=== PATIENT | female | born 1970 | race Caucasian/White ===

== ENCOUNTER 2020-02-04 15:29 | Outpatient (CLI) | payer OTHER, SELFPAY ==
--- NOTE | ~2020-02-04 | MM_ITS ---
EXAMINATION: MM screening [facility] BI w martha HISTORY: Screening mammogram TECHNIQUE: Rotated lateral cc view of left breast. ........... Jayce 1 shows there is an aneurys m or A more years ago in [place] the nipple there is a very subtle Craniocaudal and mediolateral oblique 3-D tomosynthesis images were obtained and synthetic 2-D images were generated. CAD analysis was subm itted and interpreted. COMPARISON: 04/27/2018, 10/20/2016, 10/08/2015 bilateral digital screening mammogram examinations BREAST PARENCHYMAL COMPOSITION: There are scattered areas of fibroglandular density. FINDINGS: Postoperative changes noted. There is no evidence of suspicious mass, calcification, or arc hitectural distortion to suggest malignancy in either breast. There has been no suspicious interval c hange. IMPRESSION: 1. No mammographic evidence of malignancy. 2. Recommend routine screening mammography in one year. BI-RADS Category 2: Benign finding(s). Reviewed, dictated and finalized at location A.
== END 2020-02-04 15:30 | disposition home or self-care (01) ==
PROVIDERS: PCP Family Medicine; Visit Provider Internal Medicine
DX: Z12.31 Encounter for screening mammogram for malignant neoplasm of breast (principal)
CPT/HCPCS: 77063; 77067

== ENCOUNTER 2022-09-20 15:12 | Outpatient (CLI) | payer OTHER, SELFPAY ==
--- NOTE | ~2022-09-20 | MM_ITS ---
EXAMINATION: MM screening [facility] BI w martha HISTORY: Screening mammogram, history of left breast cancer TECHNIQUE: Craniocaudal and mediolateral oblique 3-D tomosynthesis images were obtained and synthetic 2-D images were generated. CAD analysis was submitted and interpreted. COMPARISON: 02/04/2020, 04/27/2018, 10/20/2016 BREAST PARENCHYMAL COMPOSITION: There are scattered areas of fibroglandular density. FINDINGS: RIGHT BREAST: No suspicious mass, calcification, or architectural distortion are identified to sugges t malignancy. There has been no suspicious interval change. LEFT BREAST: An asymmetry is present in the middle third of the breast in line with the nipple axis V .5 cm from the nipple on the craniocaudal view. IMPRESSION: 1. Left breast asymmetry on the craniocaudal view. 2. Additional mammographic views and possible breast ultrasound are recommended. BI-RADS Category 0: Incomplete: Needs additional imaging evaluation. Reviewed, dictated and finalized at location A. IMPRESSION: 1. Left breast asymmetry on the craniocaudal view. 2. Additional mammographic views and possible breast ultrasound are recommended . BI-RADS Category 0: Incomplete: Needs additional imaging evaluation.
== END 2022-09-20 15:13 | disposition home or self-care (01) ==
LOC: ANHIMG 15:16
PROVIDERS: PCP Internal Medicine; Visit Provider Internal Medicine
DX: Z12.31 Encounter for screening mammogram for malignant neoplasm of breast (principal); R92.8 Other abnormal and inconclusive findings on diagnostic imaging of breast
CPT/HCPCS: 77063; 77067

== ENCOUNTER 2022-10-15 13:03 | Outpatient (CLI) | payer OTHER, SELFPAY ==
--- NOTE | ~2022-10-15 | MM_ITS ---
EXAMINATION: MM diagnostic kandy LT w martha HISTORY: Follow-up left breast asymmetry TECHNIQUE: Additional 3-D tomosynthesis images of the left breast were performed and synthetic 2-D im ages were generated. CAD analysis was submitted and interpreted. COMPARISON: Comparison to multiple prior studies sequentially, with oldest reviewed study dated 10/28. BREAST PARENCHYMAL COMPOSITION: Breast composition is almost entirely fatty FINDINGS: Focal left breast asymmetry compresses with spot views. No suspicious masses, calcification s or architectural distortion in the left breast to suggest malignancy. IMPRESSION: 1. No mammographic evidence for malignancy in the left breast. 2. Routine yearly screening mammogram and regular clinical breast examination are recommended. BI-RADS Category 1: Negative Reviewed, dictated and finalized at location A. 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 No mammographic evidence for malignancy in the left breast. 2. Routine yearly screening mammogram and regular clinical breast examination a re recommended. BI-RADS Category 1: Negative
== END 2022-10-15 13:04 | disposition home or self-care (01) ==
PROVIDERS: PCP Internal Medicine; Visit Provider Internal Medicine
DX: R92.2 Inconclusive mammogram (principal)
CPT/HCPCS: 77061; 77065; G0279

== ENCOUNTER 2023-10-11 15:18 | Outpatient (CLI) | payer OTHER, SELFPAY ==
--- NOTE | ~2023-10-11 | MM_ITS ---
EXAMINATION: MM screening [facility] BI w martha HISTORY: Screening mammogram TECHNIQUE: Craniocaudal and mediolateral oblique 3-D tomosynthesis images were obtained and synthetic 2-D images were generated. CAD analysis was submitted and interpreted. COMPARISON: 10/15/2022, 09/20/2022, 02/04/2020, 04/27/2018 BREAST PARENCHYMAL COMPOSITION: There are scattered areas of fibroglandular density. FINDINGS: No suspicious mass, calcification, or architectural distortion are identified in either ean ast to suggest malignancy. There has been no suspicious interval change. IMPRESSION: 1. No mammographic evidence of malignancy. 2. Recommend routine screening mammography in one year. BI-RADS Category 1: Negative Reviewed, dictated and finalized at location A. 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
== END 2023-10-11 15:19 | disposition home or self-care (01) ==
PROVIDERS: PCP Internal Medicine; Visit Provider Obstetrics & Gynecology
DX: Z12.31 Encounter for screening mammogram for malignant neoplasm of breast (principal)
CPT/HCPCS: 77063; 77067

== ENCOUNTER 2025-01-10 15:49 | Outpatient (CLI) | payer OTHER, SELFPAY ==
--- NOTE | ~2025-01-10 | MM_ITS ---
EXAMINATION: MM screening kandy BI w martha HISTORY: Screening TECHNIQUE: Craniocaudal and mediolateral oblique 3-D tomosynthesis images were obtained and synthetic 2-D images were generated. CAD analysis was submitted and interpreted. COMPARISON: Comparison to multiple prior studies sequentially, with oldest reviewed study dated 09/29. BREAST PARENCHYMAL COMPOSITION: Not dense: There are scattered areas of fibroglandular density. FINDINGS: There is no evidence of suspicious mass, calcification, or architectural distortion to sugg est malignancy in either breast. There has been no suspicious interval change. IMPRESSION: 1. No mammographic evidence of malignancy. 2. Recommend routine screening mammography in one year. BI-RADS Category 1: Negative Reviewed, dictated and finalized at location B. 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
--- OUTSIDE RECORDS SUMMARY | 2025-01-10 15:52 | XMS_ITS | Clinical Summary ---
Author Organization [facility] Address [address] [place] [address] Phone Care Team Providers Care Data Governance Analyst Name Role Phone Carlyle Edmonds MD Primary Care Provider Carlyle Edmonds MD Unavailable [phone] Allergies No known active allergies Medications Triamcinolone Acetonide (NASACORT AQ NA) by Nasal route. Active Calcium Carbonate (CALCIUM 600 PO) Take by mouth. Active Multiple Vitamins-Calcium (ONE-A-DAY WOMENS PO) Take by mouth. Active Ascorbic Acid (VITAMIN C) 1000 MG Tablet Take by mouth. Active valACYclovir (VALTREX) 1 GM Tablet Take 1 Tab by mouth daily. 30 Tab 3 09/08/2017 Active GARLIC PO Take by mouth. Active Cholecalciferol (VITAMIN D-3 PO) Take by mouth. Active vitamin b-12 (CYANOCOBALAMIN) 100 MCG Tablet Take 100 mcg by mouth daily. 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 Family History Medical History Relation Name Comments Cancer Mother Stroke Mother Relation Name Status Comments Mother Social History Tobacco Use Types Packs/Day Years Used Date Smoking Tobacco: Every Day Cigarettes 1 30 Smokeless Tobacco: Never Tobacco Cessation:Ready to Q uit: No; Counseling Given: Yes Alcohol Use Standard Drinks/Week Comments Yes 0 (1 standard drink = 0.6 oz pur e alcohol) weekly Comments No Sex and Gender Information Value Date Recorded Sex Assigned at Not on file Legal Sex Female 12:22 AM CDT Gender Identity Not on file Sexual Orientation Not on file Last Filed Vital Signs Vital Sign Reading Time Taken Comments Blood Pressure 118/80 09/24/2019 11:07 AM CDT Pulse 81 09/24/2019 11:07 AM CDT Temperature 36.6 C (97.9 F) 09/24/2019 11:07 AM CDT Respiratory Rate 18 09/24/2019 11:07 AM CDT Oxygen Saturation 96% 09/24/2019 11:07 AM CDT Inhaled Oxygen Concentration - - Weight 94.5 kg (208 lb 6.4 oz) 09/24/2019 11:07 AM CDT Height 168.9 cm (5' 6.5 ) 09/24/2019 11:07 AM CD T Body Mass Index 33.13 09/24/2019 11:07 AM CDT Plan of Treatment Health Maintenance Due Date Last Done Comments Hepatitis C Virus (HCV) Screening 1969 TdaP Immunization 1969 Hepatitis B Immunization (1 of 3 - 19+ 3-dose series) 1988 Colonoscopy 2014 Colorectal Cancer Screening 2014 Cologuard 2019 Immunochemical Fecal Occult Blood 2019 Pneumococcal Immunization (50+ years) (1 of 1 - PCV) 2019 Zoster Immunization (1 of 2) 2019 Mammogram 02/03/2021 02/04/2020, 09/29, 10/08/2015, Additional history exists Influenza Immunization (#1) 2024 SARS-COV-2 Immunization ( season) 2024 Respiratory Syncytial Virus (RSV) Immunization (Adult) (1 - 1-dose 75+ series) 2044 Meningococcal Immunization (ACWY) Aged Out No longer eligible based on patient's age to complete this topic Pneumococcal Immunization Combined Aged Out No longer eligible based on patient's age to complete this topic Rotavirus Immunization Aged Out No lo nger eligible based on patient's age to complete this topic Procedures Procedure Name Priority Date/Time Associated Diagnosis Comments SANJUANA SCREENING BILATERAL DIGITAL W CAD W DAVID Routine 02/04/2020 Ductal carcinoma in situ (DCIS) of left breast from Last 3 Months or Most Recently Relevant to Health Maintenance Results * SNAJUANA SCREENING BILATERAL DIGITAL W CAD W DAVID (02/04/2020) Anatomical Region Laterality Modality breast Bilateral Mammography Replaced by [facility] Alfreda Bailon MD IMG MAMMO ORDERABLES Fin al Result from Last 3 Months or Most Recently Relevant to Health Maintenance Insurance [employer] Care Teams Data Governance Analyst Relationship Specialty Start Date End Date Carlyle Edmonds MD [address] [place] [address] PCP - General Family Medicine 12/30/15 Carlyle Edmonds MD [address] [place] [address] Family Medicine 12/30/15
--- OUTSIDE RECORDS SUMMARY | 2025-01-10 15:52 | XMS_ITS | Clinical Summary ---
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 Gender Identity Not on file Sexual Orientation Not on file Last Filed Vital Signs Vital Sign Reading Time Taken Comments Blood Pressure 120/88 04/20/2021 11:06 AM CDT Pulse - - Temperature - - Respiratory Rate - - Oxygen Saturation - - Inhaled Oxygen Concentration - - Weight 103.9 kg (229 lb) 04/20/2021 11:06 AM CDT Height 170.2 cm (5' 7 ) 04/20/2021 11:06 AM CDT Body Mass Index 35.87 04/20/2021 11:06 AM CDT Plan of Treatment Health Maintenance Due Date Last Done Comments HEPATITIS B VACCINES (1 of 3 - 19+ 3-dose series) 1988 CERVICAL CANCER SCREENING 1999 BREAST CANCER SCREENING 2009 COLORECTAL SCREENING 2014 Colorectal Cancer Screening 2014 FIT-DNA Q 3 years 2014 FIT/FOBT Q 1 year 2014 Flex Sig/CT Colonography Q 5 years 2014 ZOSTER VACCINE (1 of 2) 2019 INFLUENZA VACCINE (#1) 2024 08/27/2020 DTAP/TDAP/TD VACCINES (3 - T d or Tdap) 10/02/2029 10/02/2019, 07/21/2009 PNEUMOCOCCAL VACCINE 0-64 YEARS Aged Out No longer eligible b ased on patient's age to complete this topic
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
--- OUTSIDE RECORDS SUMMARY | 2025-01-10 15:53 | XMS_ITS | Clinical Summary ---
Author Organization [facility] Address [address] [place] [address] Care Team Providers Care Quality Control Industrial Engineer Name Role Phone Carlyle Edmonds MD Primary Care Provider [phone] Mario Hodges MD Unavailable [phone] Source Comments [facility],non-owned Affiliates and Associated Physician Practices is amultiple site organization consisting of ambulatory clinics and hospital sitesin [place], [place], [place] and [place]. This disclosure is being madepursuant to the Care Everywhere program and may not contain all information available regarding this patient. Last updated 18.[facility] Allergies No known active allergies Medications * Be aware that medications may not be up to date on this document. Alwaysverify current medications with the patient. Medication Sig Dispensed Refills Start Date End Date Status tamoxifen (NOLVADEX) 20 MG tablet Take 20 mg by mouth Active valACYclovir (VALTREX) 1 GM tablet Take 1 Tab by mouth Active vitamin C (ASCORBIC ACID) 1000 MG tablet Acti ve calcium carbonate (CALTRATE) 600 MG tablet Active valACYclovir (VALTREX) 1 GM tablet Active Family History Medical History Relation Name Comments Arthritis Father [place] Cancer - Colon Mother [place]<65(female) Mother NELL Mental Health Sister Relation Name Status Comments Father [place] Alive Mother NELL Sister Social History Tobacco Use Types Packs/Day Years Used Date Smoking Tobacco: Heavy Smoker Cigarettes Alcohol Use Standard Drinks/Week Comments Yes 0 (1 standard drink = 0.6 oz pur e alcohol) RARELY AND OCCASIONALLY Sex and Gender Information Value Date Recorded Sex Assigned at Not on file Gender Identity Not on file Sexual Orientation Not on file Last Filed Vital Signs Vital Sign Reading Time Taken Comments Blood Pressure 142/98 09/10/2016 11:31 AM CDT Pulse 72 09/10/2016 11:31 AM CDT Temperature 36.7 C (98 F) 08/19/2016 12:55 PM CDT Respiratory Rate 18 09/10/2016 11:3 1 AM CDT Oxygen Saturation 98% 09/10/2016 11: 31 AM CDT Inhaled Oxygen Concentration - - Weight 104.2 kg (229 lb 12.8 oz) 2015 11:31 AM CDT Height 167.6 cm (5' 6 ) 09/10/2016 11:3 1 AM CDT Body Mass Index 37.09 09/10/2016 11:31 AM CDT Plan of Treatment Health Maintenance Due Date Last Done Comments COLOGUARD (AGES 45-75) - COL ON CA SCREENING 1970 COLON MONITORING 1970 COLONOSCOPY - COLON CA SCREENING 1969 CT COLONOGRAPHY - COLON CA SCREENING 1970 Colorectal Cancer Screening 1970 FIT - COLON CA SCREENING 1970 FLEX SIG - COLON CA SCREENING 1970 LIPID TESTING 1970 MAMMOGRAM 1970 HIV SCREENING 1984 HEPATITIS C SCREENING 04/06/1987 DTAP/TDAP/TD VACCINES (1 - Tdap) 1988 HEPATITIS B VACCINE (1 of 3 - 19+ 3-dose series) 1988 PNEUMOCOCCAL VACCINE 50+ (1 of 2 - PCV) 1988 PNEUMOCOCCAL VACCINE (1 of 2 - PCV) 1988 ZOSTER VACCINE (1 of 2) 2019 COVID-19 VACCINE (1 - 2023-2 5 season) 2024 INFLUENZA VACCINE (#1) 2024 DEPRESSION SCREENING 11/28/2024 HIB VACCINE Aged Out No longer eligi ble based on patient's age to complete this topic HPV VACCINE Aged Out No longer eligi ble based on patient's age to complete this topic MENINGOCOCCAL (Group B) VACCINE Aged Out No longer eligible based on patient's age to complete this topic MENINGOCOCCAL VACCINE Aged Out No starla anna eligible based on patient's age to complete this topic Care Teams Quality Control Industrial Engineer Relationship Specialty Start Date End Date Carlyle Edmonds MD [address] [place] [address] PCP - General Family Medicine 09/10/16 Mario Hodges MD [address] [facility] [address] [place] [address] Colon and Rectal Surgery 09/10/16
--- OUTSIDE RECORDS SUMMARY | 2025-01-10 15:53 | XMS_ITS | Encounter Summary ---
[facility] Organization [facility] Address [address] [place] [address] Phone Care Team Providers Care Roller Helper Name Role Phone Jonathan Nugent MD Unavailable [phone] Carlyle Edmonds MD Primary Care Provider Jonathan Snyder MD Primary Care Provider + Encounter Details Date Type Department Care Team (Late st Contact Info) Description 09/20/2022 Orders Only [facility] [address] [place] [id number] Scanning, Provider Social History Tobacco Use Types Packs/Day Years Used Date Smoking Tobacco: Every Day Cigarettes 0.3 39.1 Started: 1985 Smokeless Tobacco: Never Comments:patient smokes 1-2 cigarettes infrequently Alcohol Use Standard Drinks/Week Comments Yes 6 (1 standard drink = 0.6 oz pur e alcohol) possible more, occasionally AUDIT-C Answer Date Recorded Q1: How often do you have a drink containing alc ohol? 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 Not on file Not o n file documented as of this encounter Plan of Treatment Not on file documented as of this encounter Procedures Procedure Name Priority Date/Time Associated Diagnosis Comments SCAN - RADIOLOGY/IMAGING 09/20/2022 documented in this encounter Results * SCAN - RADIOLOGY/IMAGING (09/20/2022) Anatomical Region Laterality Modality Other Provider Scanning Final Result documented in this encounter Visit Diagnoses Not on filedocumented in this encounter Care Teams Roller Helper Relationship Specialty Start Date End Date Carlyle Edmonds MD [address] [place] [address] PCP - General 05/10/22 05/23/23 Jonathan Snyder MD [address] [place] [address] PCP - General Internal Medicine 05/24/23 Jonathan Nugent MD [address] [place] [address] Surgeon Orthopedic Surgery 05/17/18 documented as of this encounter
--- OUTSIDE RECORDS SUMMARY | 2025-01-10 15:53 | XMS_ITS | Patient Health Summary ---
Author Organization [facility] Address [address] [place] [address] Care Team Providers Care Airplane Tube Builder Name Role Phone Carlyle Edmonds MD Primary Care Provider [phone] Mario Hodges MD Unavailable [phone] Note from [facility],non-owned Affiliates and Associated Physician Practices is amultiple site organization consisting of ambulatory clinics and hospital sitesin [place], [place] and [place]. This disclosure is being madepursuant to the Care Everywhere program and may not contain all information available regarding this patient. Last updated 18.[facility] Allergies No known active allergies Medications * Be aware that medications may not be up to date on this document. Alwaysverify current medications with the patient. * tamoxifen (NOLVADEX) 20 MG tablet Take 20 mg by mouth * valACYclovir (VALTREX) 1 GM tablet Take 1 Tab by mouth * vitamin C (ASCORBIC ACID) 1000 MG tablet * calcium carbonate (CALTRATE) 600 MG tablet * valACYclovir (VALTREX) 1 GM tablet Social History Tobacco Use Types Packs/Day Years [...] Mass Index 37.09 09/10/2016 11:31 AM CDT Procedures * MRI BREAST BILAT [facility] CONTRAST(Performed 01/03/2013) * CREATININE BLOOD - POCT (IP) [facility](Performed 01/03/2013) Results * MRI BREAST BILAT [facility]WO CONTRAST (01/03/2013 2:31 PM FARM ASSISTANT) Anatomical Region Laterality Modality Breast Bilateral Other Impressions 01/11/2013 12:36 PM FARM ASSISTANT IMPRESSION: BI-RADS category 0, incomplete. 2.5 cm region of enhancement just above the biopsy clip in the left breast. As stated above, this is not overly suspicious in appearance, and could represent asymmetric benign background enhancement, post biopsy enhancement, or subtle ductal carcinoma in situ. No other suspicious findings within the left breast. 2 small enhancing masses within the right breast are thought most likely to represent intramammary lymph nodes, but are unable to be confirmed with MRI. Comparison to prior mammograms would be beneficial, but are not available at this time. If prior mammograms become available, they can be reviewed and an addendum can be issued. Alternatively, second look ultrasound could be used for confirmation. No suspicious enlarged axillary lymph nodes. This report was electronically signed by JANELL BECKMAN M.D. on 01/03/2013 3:15 PM . ADDENDUM #1 Prior bilateral mammograms performed 10/31/2012 and 05/28/2010 were provided for review from an outside institution. A 5 mm circumscribed mass within the upper outer right breast, 4.5 centimeters deep to the nipple is stable when compared with 2010. A second circumscribed oval mass measuring 6 mm in the lower outer right breast, 5 cm deep to the nipple is also stable when compared with 2010 examination. The exact cause of these masses is unknown, these could represent small fibroadenomas or lymph nodes, however due to the mammographic stability, they are considered benign and no further evaluation is needed. Right breast: BI-RADS category 2, benign findings. Enhancing masses within the right breast appear benign and have been stable mammographically since 2009, therefore no further followup is needed. Left breast: BI-RADS category 6, biopsy proven malignancy. 2.5 cm region of enhancement just above the biopsy clip in the left breast. As stated above, this is not overly suspicious in appearance, and could represent asymmetric benign background enhancement, post biopsy enhancement, or subtle ductal carcinoma in situ. This report was electronically signed by JANELL BECKMAN M.D. on 01/11/2013 12:36 PM . Narrative 01/11/2013 12:36 PM FARM ASSISTANT ORIGINAL REPORT MRI of the breasts with and without contrast COMPARISON: Postbiopsy mammograms of the left breast from 12/20/2012 were provided for review, as well as prebiopsy images of the left breast performed 11/16/2012. No imaging of the right breast is available for comparison. HISTORY: DUCTAL CARCINOMA IN SITU, GRADE II, WITH COMEDONCROSIS AND MICROCALCIFICATIONS LEFT BREAST AT 6:00, stereotactic breast biopsy performed on 12/20/2012. The patient is premenopausal and no longer takes hormones. Date of her last menstrual period was not provided. TECHNIQUE: Multiplanar multisequence MR imaging of both breasts before and following the administration of intravenous gadolinium contrast. Dynamic phase imaging was performed in the axial plane. Exam processed by and interpreted on a [employer] windows server specialist including 3-D volume rendering, subtraction image processing and contrast kinetic analysis. FINDINGS: Degree of postcontrast parenchymal enhancement: Moderate. RIGHT: Stippled background enhancement is seen throughout the lower outer right breast, less prominent than that seen within the left side. No distinct non-masslike enhancement is identified. 2 circumscribed enhancing masses are identified within the right breast. Both of these are T2 hyperintense and demonstrates heterogeneous enhancement, similar to the benign lymph node seen within the left breast. The first mass is located 4.5 cm deep to the nipple in the upper outer right breast. This measures 5 mm in size. A second enhancing mass within the right breast is circumscribed and lobular in appearance, measuring up to 7 mm in size. This is located within the lower outer right breast, 5 cm deep to the nipple. While both of these masses may represent intramammary lymph nodes, due to their small size, it is difficult to adequately characterized them on MRI and identify a definite fatty hilum. Comparison to prior mammograms would be beneficial. If prior mammograms are not available, second look ultrasound can be considered. Right axillary lymph nodes and internal mammary lymph nodes are not enlarged. LEFT: A focus of susceptibility artifact consistent with a biopsy clip is noted 4 cm deep to the nipple in the 6:00 position of the left breast. Just above the biopsy clip is a 2.3 x 0.7 cm region of non-masslike enhancement with a stippled appearance. This does not appear more distinct than background enhancement seen throughout both breasts, but could represent postbiopsy change, normal parenchymal enhancement, or subtle ductal carcinoma in situ given the patient's history. No hematoma is seen at the biopsy site. Moderate stippled appearing background enhancement is seen throughout the lower outer breasts bilaterally, but is more prominent throughout the left side. No distinct focal finding is seen within the left breast to suggest additional malignancy outside the biopsy site. In addition, in the outer left breast, 7 cm deep to the nipple, likely near 3:00 is an oval T2 hyperintense enhancing mass with a fatty hilum. This is most consistent with a benign intramammary lymph node and is also seen on the mammograms. Left axillary lymph nodes and internal mammary lymph nodes are not enlarged. Procedure Note Hazel Beckman MD - 05/19/2020 ORIGINAL REPORT MRI of the breasts with and without contrast COMPARISON: Postbiopsy mammograms of the left breast from 12/20/2012 wereprovided for review, as well as prebiopsy images of the left breastperformed 11/16/2012. No imaging of the right breast is available forcomparison. HISTORY: DUCTAL CARCINOMA IN SITU, GRADE II, WITH COMEDONCROSIS ANDMICROCALCIFICATIONS LEFT BREAST AT 6:00, stereotactic breast biopsyperformed on 12/20/2012. The patient is premenopausal and no longer takeshormones. Date of her last menstrual period was not provided. TECHNIQUE: Multiplanar multisequence MR imaging of both breasts before and followingthe administration of intravenous gadolinium contrast. Dynamic phaseimaging was performed in the axial plane. Exam processed by andinterpreted on a [employer] windows server specialist including 3-D volume rendering, subtraction image processing and contrast kineticanalysis. FINDINGS: Degree of postcontrast parenchymal enhancement: Moderate. RIGHT: Stippled background enhancement is seen throughout the lower outer rightbreast, less prominent than that seen within the left side. No distinctnon-masslike enhancement is identified. 2 circumscribed enhancing massesare identified within the right breast. Both of these are T2 hyperintense and demonstrates heterogeneousenhancement, similar to the benign lymph node seen within the left breast.The first mass is located 4.5 cm deep to the nipple in the upper outerright breast. This measures 5 mm in size. A second enhancing mass within the right breast is circumscribedand lobular in appearance, measuring up to 7 mm in size. This is locatedwithin the lower outer right breast, 5 cm deep to the nipple. While bothof these masses may represent intramammary lymph nodes, due to their small size, it is difficult toadequately characterized them on MRI and identify a definite fatty hilum.Comparison to prior mammograms would be beneficial. If prior mammogramsare not available, second look ultrasound can be considered. Right axillary lymph nodes and internalmammary lymph nodes are not enlarged. LEFT: A focus of susceptibility artifact consistent with a biopsy clip is noted4 cm deep to the nipple in the 6:00 position of the left breast. Justabove the biopsy clip is a 2.3 x 0.7 cm region of non-masslike enhancementwith a stippled appearance. This does not appear more distinct than background enhancement seen throughoutboth breasts, but could represent postbiopsy change, normal parenchymalenhancement, or subtle ductal carcinoma in situ given the patient'shistory. No hematoma is seen at the biopsy site. Moderate stippled appearing background enhancement is seenthroughout the lower outer breasts bilaterally, but is more prominentthroughout the left side. No distinct focal finding is seen within theleft breast to suggest additional malignancy outside the biopsy site. In addition, in the outer left breast,7 cm deep to the nipple, likely near 3:00 is an oval T2 hyperintenseenhancing mass with a fatty hilum. This is most consistent with a benignintramammary lymph node and is also seen on the mammograms. Left axillary lymph nodes and internal mammarylymph nodes are not enlarged. IMPRESSION IMPRESSION: BI-RADS category 0, incomplete. 2.5 cm region of enhancement just above the biopsy clip in the leftbreast. As stated above, this is not overly suspicious in appearance, andcould represent asymmetric benign background enhancement, post biopsyenhancement, or subtle ductal carcinoma in situ. No other suspicious findings within the left breast. 2 small enhancing masses within the right breast are thought most likelyto represent intramammary lymph nodes, but are unable to be confirmed withMRI. Comparison to prior mammograms would be beneficial, but are notavailable at this time. If prior mammograms become available, they can be reviewed and an addendum can beissued. Alternatively, second look ultrasound could be used forconfirmation. No suspicious enlarged axillary lymph nodes. This report was electronically signed by JANELL BECKMAN M.D. on01/03/2013 3:15 PM . ADDENDUM #1 Prior bilateral mammograms performed 10/31/2012 and 05/28/2010 were providedfor review from an outside institution. A 5 mm circumscribed mass withinthe upper outer right breast, 4.5 centimeters deep to the nipple is stablewhen compared with 2010. A second circumscribed oval mass measuring 6 mm in the lower outer rightbreast, 5 cm deep to the nipple is also stable when compared with 2010examination. The exact cause of these masses is unknown, these couldrepresent small fibroadenomas or lymph nodes, however due to the mammographic stability, they are consideredbenign and no further evaluation is needed. Right breast: BI-RADS category 2, benign findings. Enhancing masses withinthe right breast appear benign and have been stable mammographically [id number], therefore no further followup is needed. Left breast: BI-RADS category 6, biopsy proven malignancy. 2.5 cm regionof enhancement just above the biopsy clip in the left breast. As statedabove, this is not overly suspicious in appearance, and could representasymmetric benign background enhancement, post biopsy enhancement, or subtle ductal carcinoma insitu. This report was electronically signed by JANELL BECKMAN M.D. on01/11/2013 12:36 PM . Historical Provider MD ALAS ORDERABLES * CREATININE BLOOD - POCT (IP) [facility] (01/03/2013 1:45 PM FARM ASSISTANT) Creatinine POCT 0.79 0.3 - 1.3 mg/dL [facility] eGFR POCT 60 60 ml/min [facility] 01/03/2013 1:45 PM FARM ASSISTANT Hazel Beckman MD LAB - POINT OF CA RE ORDERABLES [facility] Care Teams Airplane Tube Builder Relationship Specialty Start Date End Date Carlyle Edmonds MD [address] [place] [address] PCP - General Family Medicine 09/10/16 Mario Hodges MD [address] [place] [address] Colon and Rectal Surgery 09/10/16
--- OUTSIDE RECORDS SUMMARY | 2025-01-10 15:53 | XMS_ITS ---
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 08/23/2018 Overview (08/23/2018): Added automatically from request for surgery [id number] Closed fracture of lower end of right radius wit h malunion 07/14/2018 Overview (07/14/2018): Added automatically from request for surgery [id number] Injury of right ulnar nerve 07/14/2018 Overview (07/14/2018): Added automatically from request for surgery [id number] Multiple rib fractures involving first rib 05/14 Liver laceration, grade II, without open wound i nto cavity 05/14/2018 Alcoholic intoxication without complication (CMS /HCC) 05/14/2018 Closed fracture of distal end of right radius Abrasions of multiple sites 05/14/2018 Vaginal discharge 06/08/2017 Breast cancer, female 11/20/2014 Overview (02/11/2020): Left ER/ND+ DCIS s/p lumpectomy in 2012 and tamoxifen x 5 years. Tobacco dependence syndrome 04/13/2014 Overview (03/02/2017): TOBACCO USE DISORDER Genital herpes simplex 04/13/2014 Overview (03/02/2017): Genital herpes Atopic rhinitis 04/13/2014 Overview (03/02/2017): ALLERGIC RHINITIS NOS Class 1 obesity with body ma ss index (BMI) of 34.0 to 34.9 in adult 04/13/2014 Overview (03/04/2017): OBESITY NOS Current smoker 03/25/2011 Current Oncology Plans No current plan information found. Past Plans No past plan information found. Radiation Treatments * No radiation treatments are documented for this patient in [facility]. Treatments may have been administered in another system. Lifetime Dose Tracking * Chemical Lifetime Dose Automatic Entry Manual Entr y DLP 3,673 mGycm 3,673 mGycm 0 mGycm Resolved Problems Problem Noted Date Diagnosed Date Resolved Date Anorectal fistula 12/10/2011 05/14/2018 Abscess of rectum 07/09/2011 05/14/2018 Perirectal abscess 03/26/2011 8
--- OUTSIDE RECORDS SUMMARY | 2025-01-10 15:53 | XMS_ITS | Referral Summary ---
Author Organization [facility] Address [address] [place] [address] Care Team Providers Care Automotive Service Management Teacher Name Role Phone Carlyle Edmonds MD Primary Care Provider [phone] Mario Hodges MD Unavailable [phone] Source Comments [facility] [employer],non-owned Affiliates and Associated Physician Practices is amultiple site organization consisting of ambulatory clinics and hospital sitesin [place], [place], [place] and [place]. This disclosure is being madepursuant to the Care Everywhere program and may not contain all information available regarding this patient. Last updated 18.[facility] [employer] Allergies No known active allergies Medications * [...] Active valACYclovir (VALTREX) 1 GM tablet Active Social History Tobacco Use Types Packs/Day Years [...] 09/10/2016 11:31 AM CDT Plan of Treatment Not on file Care Teams Automotive Service Management Teacher Relationship Specialty Start Date End Date Carlyle Edmonds MD [address] [place] [address] PCP - General Family Medicine 09/10/16 Mario Hodges MD [address] [place] [address] Colon and Rectal Surgery 09/10/16
--- OUTSIDE RECORDS SUMMARY | 2025-01-10 15:53 | XMS_ITS | Clinical Summary ---
Author Organization [facility] Address [facility] [place] [address] Care Team Providers Care Machine Room Engineer Name Role Phone None, Provider Primary Care Provider Unavaila ble Social History Tobacco Use Types Packs/Day Years Used Date Smoking Tobacco: Never Assessed Comments Unknown Sex and Gender Information Value Date Recorded Sex Assigned at Not on file Legal Sex Female 9:59 AM CDT Gender Identity Not on file Sexual Orientation Not on file Plan of Treatment Health Maintenance Due Date Last Done Comments Cervical Cancer Screening Pa p Smear (Age 30 to 64) Every 3 Years 1969 Colorectal Cancer Screening Colonoscopy (10 Years) 1969 Annual Physical 1972 Hepatitis C 1987 Hepatitis B Vaccines (1 of 3 - 19+ 3-dose series) 1988 Cervical Cancer Screening Pa p with HPV Testing (Age 30 to 64) Every 5 Years 1999 Cervical Cancer Screening wi th HPV 1999 Zoster Vaccines (1 of 2) 2019 Mammogram Screening 02/03/2022 02/04/2020 COVID-19 Vaccine ( - 2023-2 5 season) 2024 Influenza Adult (#1) 2024 08/27/2020 DTaP, Tdap and Td Vaccines ( 3 - Td or Tdap) 10/02/2029 10/02/2019, 07/21/2009 Meningococcal B Vaccine Aged Out No l onger eligible based on patient's age to complete this topic Meningococcal Vaccine Aged Out No starla anna eligible based on patient's age to complete this topic Pneumococcal Vaccine: Pediatrics (0 to 5 Years) and At-Risk Patients (6 to 64 Years) Aged Out No longer eligible b ased on patient's age to complete this topic RSV Immunizations Under 20 Months Aged Out No longer eligible b ased on patient's age to complete this topic Care Teams Machine Room Engineer Relationship Specialty Start Date End Date None, Provider, PCP - General UNKNOWN PHYSICIAN SPECIALTY 08/31/24
== END 2025-01-10 15:50 | disposition home or self-care (01) ==
PROVIDERS: PCP Internal Medicine; Visit Provider Obstetrics & Gynecology
DX: Z12.31 Encounter for screening mammogram for malignant neoplasm of breast (principal)
CPT/HCPCS: 77063; 77067